=== PATIENT | male | born 1980 | race Caucasian/White ===

== ENCOUNTER 2016-11-11 13:07 | Emergency (ER) | payer MEDICAID ==
[~2016-11-11] VITALS: Ht 190.5 cm; Wt 102.1 kg
[~2016-11-11 13:07] MED LIST: TORADOL10 MG PO
--- OUTSIDE RECORDS SUMMARY | 2016-11-11 13:35 | External Medical Summary Rpt ---
Author Author , Organization [employer] Address Unknown Phone Unavailable Care Team Providers Care Manager Medical Affairs Name Role Phone [facility], Unavailable Unavailable [facility] FLACA HIRAM, Unavailable Unavailable FLACA HIRAM MACIE RHO, MAICE Unavailable Unavailable [facility] Un[facility] Unavailable [facility], [facility] Unavailable Unavailable [facility]ING [facility], [facility] SOKAN BAB, SOKAN BAB Unavailable Unavailable [facility] Purpose Continuity of Care Document - 07-22-2015 through 2016 Problems Code Diagnosis DOS Provider Status [id number] SPRAIN MED 03-11-2016 [facility] LIGAMENT LT INC KNEE INITIAL [id number] OTHER 02-03-2016 [place] [facility] LEFT KNEE IMAGING ASS P40502 PAIN IN 02-03-2016 [place] [facility] IM[facility]ING ASS M1712 UNILATERAL 01-26-2016 [facility] OSTEOARTHRI INC TIS LEFT KNEE Z720 TOBACCO USE 01-26-2016 [facility] INC J020 STREPTOCOCC 07-22-2015 [facility] PHARYNGITIS PHYS R05 COUGH 07-22-2015 [facility] M19.90 UNSPECIFIED OSTEOARTHRI TIS, UNSPECIFIED SITE S63.91XA SPRAIN OF UNSP PART OF RIGHT WRIST AND HAND, INIT ENCNTR Procedures Procedure DOS Code Location Performer Comment THERAPEUT 21881 [facility] [place] 1/> [facility] EACH 15 MIN EXERCISES THERAPEUT 32855 [facility] [place]/> [facility] EACH 15 MIN EXERCISES THERAPEUT 57809 [facility] [place]/> [facility] INC EACH 15 MIN EXERCISES APPL 38069 [facility] [place] MODALITY 6 [facility] /> AREAS INC INC IONTOPHOR ESIS EA 15 MIN THERAPEUT 03366 [facility] [place]/> [facility] INC EACH 15 MIN EXERCISES APPL 13656 [facility] [place] MODALITY 6 [facility] 1/> AREAS INC INC IONTOPHOR ESIS EA 15 MIN THERAPEUT 04034 [facility] [place]/> [facility] INC EACH 15 MIN EXERCISES APPL 79744 [facility] [place] MODALITY 6 [facility] 1/> AREAS INC INC IONTOPHOR ESIS EA 15 MIN APPL 33159 [facility] [place] MODALITY 6 [facility] 1/> AREAS INC INC ULTRASOUN D EA 15 MIN THERAPEUT 33934 [facility] [place] P[place] 1/> 6 [facility] INC EACH 15 MIN EXERCISES APPL 27643 [facility] [place] MODALITY 6 [facility] 1/> AREAS INC INC IONTOPHOR ESIS EA 15 MIN PHYSICAL 92822 [facility] [place] THERAPY 6 [facility] EVALUATIO INC INC N MRI ANY 40903 [facility] JT LOWER 6 [facility] EXTREM INC INC W/O CONTRAST MATRL RADIOLOGI 50977 [place] C 6 MEDICAL HIRAM EXAMINATI IMAGING ON KNEE 3 ASS VIEWS RADIOLOGI 22845 [place] MACIE C EXAM 6 RADIOLOGY RHO CHEST 2 VIEWS FRONTAL&L ATERAL ECG 09501 [facility] BAB ROUTINE 6 [place] ECG EMERGENCY W/LEAST PHYS 12 LDS I&R ONLY Encounters Encounter Start End Date Code Location Performer Type Date [facility]AL - 6 6 [facility] - 6 6 [facility] - 6 6 [facility] EMERGENCY 84624 [facility] BAB DEPT 6 6 [place] VISIT EMERGENCY HIGH PHYS SEVERITY& THREAT FUNCJ
--- OUTSIDE RECORDS SUMMARY | 2016-11-11 13:35 | External Medical Summary Rpt ---
Author Author , Organization [employer] Address Unknown Phone Unavailable Care Team Providers Care Warp Dyeing Tender Name Role Phone [facility], Unavailable Unavailable [facility] FLACA HIRAM, Unavailable Unavailable FLACA HIRAM MACIE RHO, MACIE Unavailable Unavailable [facility] Unavailable Unavailable INC, [facility] Unavailable Unavailable IM[facility]ING [facility], [facility] SOKAN BAB, SOKAN BAB Unavailable Unavailable [facility] Unavailable Unavailable [facility] Purpose Continuity of Care Document - 07-22-2015 through 2016 Problems Code Diagnosis DOS Provider Status [id number] SPRAIN MED 03-11-2016 [facility] LIGAMENT LT INC KNEE INITIAL N00551 OTHER 02-03-2016 [place] [facility] LEFT KNEE IMAGING ASS [id number] PAIN IN 02-03-2016 [place] [facility] IM[facility]ING ASS M1712 UNILATERAL 01-26-2016 [facility] OSTEOARTHRI INC TIS LEFT KNEE Z720 TOBACCO USE 01-26-2016 [facility] INC J020 STREPTOCOCC 07-22-2015 [facility] PHARYNGITIS PHYS R05 COUGH 07-22-2015 [facility] M19.90 UNSPECIFIED OSTEOARTHRI TIS, UNSPECIFIED SITE S63.91XA SPRAIN OF UNSP PART OF RIGHT WRIST AND HAND, INIT ENCNTR Procedures Procedure DOS Code Location Performer Comment THERAPEUT 33119 [facility] [place]/> [facility] INC EACH 15 MIN EXERCISES THERAPEUT 91748 [facility] [place]/> [facility] INC EACH 15 MIN EXERCISES THERAPEUT 96199 [facility] [place]/> 6 [facility] INC EACH 15 MIN EXERCISES APPL 12427 [facility] [place] MODALITY 6 [facility] /> AREAS INC INC IONTOPHOR ESIS EA 15 MIN THERAPEUT 25488 [facility] [place] 1/> 6 [facility] INC EACH 15 MIN EXERCISES APPL 27041 [facility] [place] MODALITY 6 [facility] 1/> AREAS INC INC IONTOPHOR ESIS EA 15 MIN THERAPEUT 64751 [facility] [place] 1/> 6 [facility] INC INC EACH 15 MIN EXERCISES APPL 98931 [facility] [place] MODALITY 6 [facility] 1/> AREAS INC INC IONTOPHOR ESIS EA 15 MIN APPL 17524 [facility] [place] MODALITY 6 [facility] 1/> AREAS INC INC ULTRASOUN D EA 15 MIN THERAPEUT 28727 [facility] [place] 1/> 6 [facility] INC EACH 15 MIN EXERCISES APPL 50189 [facility] [place] MODALITY 6 [facility] 1/> AREAS INC INC IONTOPHOR ESIS EA 15 MIN PHYSICAL 41781 [facility] [place] THERAPY 6 [facility] [place]ALUATIO INC [place] 31164 [facility] [place] JT LOWER 6 [facility] EXTREM INC INC W/O CONTRAST MATRL RADIOLOGI 60239 [place] C 6 MEDICAL HIRAM EXAMINATI IMAGING ON KNEE 3 ASS VIEWS RADIOLOGI 82208 [place] MACIE C EXAM 6 RADIOLOGY RHO CHEST 2 VIEWS FRONTAL&L ATERAL ECG 70244 [facility] BAB ROUTINE 6 [place] ECG EMERGENCY W/LEAST PHYS 12 LDS I&R ONLY Encounters Encounter Start End Date Code Location Performer Type Date [facility] - 6 6 [facility] 6 [facility] - 6 6 [facility] - 6 6 [facility] EMERGENCY 09294 [facility] BAB DEPT 6 6 [place] VISIT EMERGENCY HIGH PHYS SEVERITY& THREAT FUNCJ
--- OUTSIDE RECORDS SUMMARY | 2016-11-11 13:36 | External Medical Summary Rpt ---
Author Author , Organization [employer] Address Unknown Phone Unavailable Care Team Providers Care Plant Electrician Name Role Phone [facility], Unavailable Unavailable [facility] FLACA HIRAM, Unavailable Unavailable FLACA HIRAM MACIE RHO, MACIE Unavailable Unavailable [facility] Unavailable Unavailable INC, [facility] Unavailable Unavailable IM[facility]ING [facility], [facility] SOKAN BAB, SOKAN BAB Unavailable Unavailable [facility] Un[facility] Unavailable [facility] Purpose Continuity of Care Document - 07-22-2015 through 2016 Problems Code Diagnosis DOS Provider Status [id number] SPRAIN MED 03-11-2016 [facility] LIGAMENT LT INC KNEE INITIAL S71838 OTHER 02-03-2016 [place] [facility] LEFT KNEE IMAGING ASS [id number] PAIN IN 02-03-2016 [place] [facility] IM[facility]ING ASS M1712 UNILATERAL 01-26-2016 [facility] OSTEOARTHRI INC TIS LEFT KNEE Z720 TOBACCO USE 01-26-2016 [facility] INC J020 STREPTOCOCC 07-22-2015 [facility] PHARYNGITIS PHYS R05 COUGH 07-22-2015 [facility] Procedures Procedure DOS Code Location Performer Comment THERAPEUT 99572 [facility] [place] P[place] 1/> [facility] EACH 15 MIN EXERCISES THERAPEUT 16183 [facility] [place]/> [facility] INC EACH 15 MIN EXERCISES APPL 74770 [facility] MODALITY 6 [facility] 1/> AREAS INC INC IONTOPHOR ESIS EA 15 MIN THERAPEUT 12438 [facility] [place] P[place] 1/> 6 [facility] INC EACH 15 MIN EXERCISES APPL 83624 [facility] MODALITY 6 [facility] 1/> AREAS INC INC IONTOPHOR ESIS EA 15 MIN THERAPEUT 55446 [facility] [place] 1/> 6 [facility] INC EACH 15 MIN EXERCISES APPL 29947 [facility] MODALITY 6 [facility] 1/> AREAS INC INC ULTRASOUN D EA 15 MIN APPL 86662 [facility] [place] MODALITY 6 [facility] 1/> AREAS INC INC IONTOPHOR ESIS EA 15 MIN THERAPEUT 83610 [facility] [place] P[place] 1/> 6 [facility] AREAS INC INC EACH 15 MIN EXERCISES APPL 40089 [facility] [place] MODALITY 6 [facility] 1/> AREAS INC INC IONTOPHOR ESIS EA 15 MIN THERAPEUT 27098 [facility] [place] PX 1/> 6 [facility] AREAS INC INC EACH 15 MIN EXERCISES PHYSICAL 34279 [facility] [place] THERAPY 6 [facility] EVALUATIO INC INC N MRI ANY 15175 [place] JT LOWER 6 MEDICAL HIRAM EXTREM IMAGING W/O ASS CONTRAST MATRL RADIOLOGI 94977 [place] C 6 MEDICAL HIRAM EXAMINATI IMAGING ON KNEE 3 ASS VIEWS ECG 14740 [facility] BAB ROUTINE 6 [place] ECG EMERGENCY W/LEAST PHYS 12 LDS I&R ONLY RADIOLOGI 39772 [place] MACIE C EXAM 6 RADIOLOGY RHO CHEST 2 VIEWS FRONTAL&L ATERAL Encounters Encounter Start End Date Code Location Performer Type Date [facility] BIMAL - 6 6 [facility] BIMAL [facility] 6 6 [facility] BIMAL - 6 6 [facility] 6 6 [facility] EMERGENCY 36321 [facility] BAB DEPT 6 6 [place] VISIT EMERGENCY HIGH PHYS SEVERITY& THREAT FUNCJ
--- OUTSIDE RECORDS SUMMARY | 2016-11-11 13:36 | External Medical Summary Rpt ---
Author Author , Organization [employer] Address Unknown Phone Unavailable Care Team Providers Care Lone Lead Lineman Name Role Phone [facility], Unavailable Unavailable [facility] FLACA HIRAM, Unavailable Unavailable FLACA HIRAM MACIE RHO, MACIE Unavailable Unavailable [facility] Unavailable Unavailable INC, [facility] Unavailable Unavailable IMAGING ASS, [facility] SOKAN BAB, SOKAN BAB Unavailable Unavailable [facility] Unavailable Unavailable [facility], [facility] Purpose Continuity of Care Document - 07-22-2015 through 2016 Problems Code Diagnosis DOS Provider Status [id number] SPRAIN MED 03-11-2016 [facility] LIGAMENT LT INC KNEE INITIAL [id number] OTHER 02-03-2016 [place] [facility] LEFT KNEE IMAGING ASS W07185 PAIN IN 02-03-2016 [place] LEFT [facility] MEDICAL IMAGING ASS M1712 UNILATERAL 01-26-2016 [facility] OSTEOARTHRI INC TIS LEFT KNEE Z720 TOBACCO USE 01-26-2016 [facility] INC J020 STREPTOCOCC 07-22-2015 [facility] PHARYNGITIS PHYS R05 COUGH 07-22-2015 [facility] Procedures Procedure DOS Code Location Performer Comment THERAPEUT 43725 [facility] [place] 1/> [facility] EACH 15 MIN EXERCISES THERAPEUT 73032 [facility] [place]/> [facility] INC EACH 15 MIN EXERCISES APPL 33929 [facility] MODALITY 6 [facility] 1/> AREAS INC INC IONTOPHOR ESIS EA 15 MIN THERAPEUT 10621 [facility] [place] PX 1/> [facility] INC EACH 15 MIN EXERCISES APPL 15469 [facility] MODALITY 6 [facility] 1/> AREAS INC INC IONTOPHOR ESIS EA 15 MIN THERAPEUT 33553 [facility] [place] P[place] 1/> 6 [facility] INC EACH 15 MIN EXERCISES APPL 85636 [facility] MODALITY 6 [facility] 1/> AREAS INC INC ULTRASOUN D EA 15 MIN APPL 06299 [facility] [place] MODALITY 6 [facility] 1/> AREAS INC INC IONTOPHOR ESIS EA 15 MIN THERAPEUT 19313 [facility] [place] PX 1/> 6 [facility] AREAS INC INC EACH 15 MIN EXERCISES APPL 33370 [facility] [place] MODALITY 6 [facility] 1/> AREAS INC INC IONTOPHOR ESIS EA 15 MIN THERAPEUT 93330 [facility] [place] IC PX 1/> 6 [facility] AREAS INC INC EACH 15 MIN EXERCISES PHYSICAL 55406 [facility] [place] THERAPY 6 [facility] EVALUATIO INC INC N MRI ANY 23792 [place] JT LOWER 6 MEDICAL HIRAM EXTREM IMAGING W/O ASS CONTRAST MATRL RADIOLOGI 57486 [place] C 6 MEDICAL HIRAM EXAMINATI IMAGING ON KNEE 3 ASS VIEWS ECG 63421 [facility] BAB ROUTINE 6 [place] ECG EMERGENCY W/LEAST PHYS 12 LDS I&R ONLY RADIOLOGI 44439 [place] MACIE C EXAM 6 RADIOLOGY RHO CHEST 2 VIEWS FRONTAL&L ATERAL Encounters Encounter Start End Date Code Location Performer Type Date [facility] BIMAL - 6 6 [facility] OUTPATIEN [facility] BIMAL [facility] 6 6 [facility] BIMAL [facility] 6 6 [facility] B[facility] - 6 6 [facility] EMERGENCY 95278 [facility] BAB DEPT 6 6 [place] VISIT EMERGENCY HIGH PHYS SEVERITY& THREAT FUNCJ
--- OUTSIDE RECORDS SUMMARY | 2016-11-11 13:36 | External Medical Summary Rpt ---
Author Author , Organization [employer] Address Unknown Phone Unavailable Care Team Providers Care Counselor Education Professor Name Role Phone [facility], Unavailable Unavailable [facility] FLACA HIRAM, Unavailable Unavailable FL[place] HIRAM MACIE RHO, MACIE Unavailable Unavailable [facility] Un[facility] Unavailable [facility], [facility] Unavailable Unavailable IMAGING ASS, [facility] SOKAN BAB, SOKAN BAB Unavailable Unavailable [facility] Unavailable Unavailable [facility] Purpose Continuity of Care Document - 07-22-2015 through 2016 Problems Code Diagnosis DOS Provider Status [id number] SPRAIN MED 03-11-2016 [facility] LIGAMENT LT INC KNEE INITIAL V76388 OTHER 02-03-2016 [place] [facility] LEFT KNEE IMAGING ASS Q75043 PAIN IN 02-03-2016 [place] [facility] IM[facility]ING ASS M1712 UNILATERAL 01-26-2016 [facility] OSTEOARTHRI INC TIS LEFT KNEE Z720 TOBACCO USE 01-26-2016 [facility] INC J020 STREPTOCOCC 07-22-2015 [facility] PHARYNGITIS PHYS R05 COUGH 07-22-2015 [facility] Procedures Procedure DOS Code Location Performer Comment THERAPEUT 30835 [facility] [place] P[place] 1/> [facility] INC EACH 15 MIN EXERCISES THERAPEUT 21706 [facility] [place]/> [facility] INC EACH 15 MIN EXERCISES APPL 09316 [facility] MODALITY 6 [facility] 1/> AREAS INC INC IONTOPHOR ESIS EA 15 MIN THERAPEUT 26645 [facility] [place] P[place] 1/> 6 [facility] INC INC EACH 15 MIN EXERCISES APPL 92411 [facility] MODALITY 6 [facility] 1/> AREAS INC INC IONTOPHOR ESIS EA 15 MIN THERAPEUT 90951 [facility] [place] P[place] 1/> 6 [facility] INC EACH 15 MIN EXERCISES APPL 38285 [facility] MODALITY 6 [facility] 1/> AREAS INC INC ULTRASOUN D EA 15 MIN APPL 73271 [facility] MODALITY 6 [facility] 1/> AREAS INC INC IONTOPHOR ESIS EA 15 MIN THERAPEUT 75038 [facility] [place] IC PX 1/> 6 [facility] AREAS INC INC EACH 15 MIN EXERCISES APPL 71578 [facility] [place] MODALITY 6 [facility] 1/> AREAS INC INC IONTOPHOR ESIS EA 15 MIN THERAPEUT 54564 [facility] [place] IC PX 1/> 6 [facility] AREAS INC INC EACH 15 MIN EXERCISES PHYSICAL 56992 [facility] THERAPY 6 [facility] EVALUATIO INC [place] ANY 28409 [place] JT LOWER 6 MEDICAL HIRAM EXTREM IMAGING W/O ASS CONTRAST MATRL RADIOLOGI 77420 [place] C 6 MEDICAL HIRAM EXAMINATI IMAGING ON KNEE 3 ASS VIEWS ECG 85922 [facility] BAB ROUTINE 6 [place] ECG EMERGENCY W/LEAST PHYS 12 LDS I&R ONLY RADIOLOGI 32225 [place] MACIE C EXAM 6 RADIOLOGY RHO CHEST 2 VIEWS FRONTAL&L ATERAL Encounters Encounter Start End Date Code Location Performer Type Date [facility] BIMAL - 6 6 [facility] OUTPATIEN [facility] BIMAL [facility] 6 6 [facility]PAT[facility] BIMAL - 6 6 [facility] 6 6 [facility] EMERGENCY 44709 [facility] BAB DEPT 6 6 [place] VISIT EMERGENCY HIGH PHYS SEVERITY& THREAT FUNCJ
--- OUTSIDE RECORDS SUMMARY | 2016-11-11 13:36 | External Medical Summary Rpt ---
Author Author , Organization [employer] Address Unknown Phone Unavailable Care Team Providers Care Composite Worker Name Role Phone [facility], Unavailable Unavailable [facility] FLACA HIRAM, Unavailable Unavailable FLACA HIRAM MACIE RHO, MACIE Unavailable Unavailable [facility] Un[facility], [facility] Unavailable Unavailable IMAGING ASS, [facility] SOKAN BAB, SOKAN BAB Unavailable Unavailable [facility] Unavailable Unavailable [facility] Purpose Continuity of Care Document - 07-22-2015 through 2016 Problems Code Diagnosis DOS Provider Status [id number] SPRAIN MED 03-11-2016 [facility] LIGAMENT LT INC KNEE INITIAL [id number] OTHER 02-03-2016 [place] [facility] LEFT KNEE IMAGING ASS [id number] PAIN IN 02-03-2016 [place] LEFT KNEE MEDICAL IMAGING ASS M1712 UNILATERAL 01-26-2016 [facility] OSTEOARTHRI INC TIS LEFT KNEE Z720 TOBACCO USE 01-26-2016 [facility] INC J020 STREPTOCOCC 07-22-2015 [facility]ERG[facility] PHARYNGITIS PHYS R05 COUGH 07-22-2015 [facility] Procedures Procedure DOS Code Location Performer Comment THERAPEUT 47581 [facility] [place] P[place] 1/> [facility] EACH 15 MIN EXERCISES THERAPEUT 24379 [facility] [place] P[place] 1/> [facility] INC EACH 15 MIN EXERCISES APPL 76646 [facility] MODALITY 6 [facility] 1/> AREAS INC INC IONTOPHOR ESIS EA 15 MIN THERAPEUT 70966 [facility] [place] P[place] 1/> 6 [facility] INC EACH 15 MIN EXERCISES APPL 67379 [facility] MODALITY 6 [facility] 1/> AREAS INC INC IONTOPHOR ESIS EA 15 MIN THERAPEUT 97696 [facility] [place] P[place] 1/> 6 [facility] INC EACH 15 MIN EXERCISES APPL 95804 [facility] MODALITY 6 [facility] 1/> AREAS INC INC ULTRASOUN D EA 15 MIN APPL 28800 [facility] MODALITY 6 [facility] 1/> AREAS INC INC IONTOPHOR ESIS EA 15 MIN THERAPEUT 57626 [facility] [place] IC PX 1/> 6 [facility] AREAS INC INC EACH 15 MIN EXERCISES APPL 40059 [facility] [place] MODALITY 6 [facility] 1/> AREAS INC INC IONTOPHOR ESIS EA 15 MIN THERAPEUT 08470 [facility] [place] PX 1/> 6 [facility] AREAS INC INC EACH 15 MIN EXERCISES PHYSICAL 37344 [facility] THERAPY 6 [facility] EVALUATIO INC INC [place] ANY 63401 [place] JT LOWER 6 MEDICAL HIRAM EXTREM IMAGING W/O ASS CONTRAST MATRL RADIOLOGI 95556 [place] C 6 MEDICAL HIRAM EXAMINATI IMAGING ON KNEE 3 ASS VIEWS ECG 63492 [facility] BAB ROUTINE 6 [place] ECG EMERGENCY W/LEAST PHYS 12 LDS I&R ONLY RADIOLOGI 68791 [facility] MACIE C EXAM 6 RADIOLOGY RHO CHEST 2 VIEWS FRONTAL&L ATERAL Encounters Encounter Start End Date Code Location Performer Type Date [facility] BIMAL - 6 6 [facility] OUT[facility] BIMAL - 6 6 [facility]IM[facility] - 6 6 [facility] - 6 6 [facility] EMERGENCY 79232 [facility] BAB DEPT 6 6 [place] VISIT EMERGENCY HIGH PHYS SEVERITY& THREAT FUNCJ
--- OUTSIDE RECORDS SUMMARY | 2016-11-11 13:36 | External Medical Summary Rpt ---
Author Author BET[employer] Barnard, BETO Barnard Organization [employer] Address Unknown Phone Unavailable
--- OUTSIDE RECORDS SUMMARY | 2016-11-11 13:36 | External Medical Summary Rpt ---
Demographics Preferred Language Kinyarwanda Marital Status Unknown Anglican Affiliation Unknown Race Unknown Ethnic Group Unknown Author Author , Organization [employer] Address Unknown Phone Unavailable Purpose Continuity of Care Document - through 2016 Immunization No patient found.
--- OUTSIDE RECORDS SUMMARY | 2016-11-11 13:36 | External Medical Summary Rpt ---
Author Author , Organization [employer] Address Unknown Phone Unavailable Care Team Providers Care Sewing Inspector Name Role Phone [facility], Unavailable Unavailable [facility] HIRAM, Unavailable Unavailable [facility] MACIE RHO, MACIE Unavailable Unavailable [facility], [facility] Un[facility] Unavailable [facility], [facility] SOKAN BAB, SOKAN BAB Unavailable Unavailable [facility] Purpose Continuity of Care Document - 07-22-2015 through 2016 Problems Code Diagnosis DOS Provider Status [id number] SPR[facility] MED [facility]-11-[facility] KNEE INITIAL [id number] OTHER 02-03-2016 [facility] [facility] LEFT [facility]EE IM[facility]ING [facility] L50021 PAIN IN 02-03-2016 [place] [facility] M1712 UNILATERAL 01-26-2016 [facility] OSTE[facility] TIS LEFT KNEE Z720 TOBACCO USE 01-26-2016 [facility] J020 STREPTOCOCC 07-22-2015 [facility] PHARYNGITIS PHYS R05 COUGH 07-22-2015 [facility] M19.90 UNSPECIFIED OSTEOARTHRI TIS, UNSPECIFIED SITE S63.91XA SPRAIN OF UNSP PART OF RIGHT WRIST AND HAND, INIT ENCNTR Procedures Procedure DOS Code Location Performer Comment THERAPEUT 18115 [facility] [place] PX 1/> [facility] EACH 15 MIN EXERCISES THERAPEUT 76267 [facility] IC PX 1/> [facility] EACH 15 MIN EXERCISES APPL 48698 [facility] [place] MODALITY 6 [facility] 1/> [facility] INC INC IONTOPHOR ESIS EA 15 MIN THERAPEUT 41834 [facility] [place] IC PX 1/> 6 [facility] EACH 15 MIN EXERCISES APPL 31851 [facility] [place] MODALITY 6 [facility] 1/> [facility] INC IONTOPHOR ESIS EA 15 MIN THERAPEUT 55246 [facility] [place] PX 1/> 6 [facility] EACH 15 MIN EXERCISES APPL 63344 [facility] [place] MODALITY 6 [facility]/> [facility] INC ULTRASOUN D EA 15 MIN APPL 24823 [facility] [place] MODALITY 6 [facility] 1/> [facility] INC IONTOPHOR ESIS EA 15 MIN THERAPEUT 76636 [facility] [place] PX 1/> 6 [facility] EACH 15 MIN EXERCISES APPL 19162 [facility] [place] MODALITY 6 [facility] 1/> ARE[facility] INC INC IONTOPHOR ESIS EA 15 MIN THERAPEUT 93635 [facility] [place] IC PX 1/> 6 [facility] EACH 15 MIN EXERCISES PHYSICAL 74073 [facility] [place] THERAPY 6 [facility] INC N MRI ANY 10254 [place] [facility] JT LOWER 6 [facility] EXTREM IMAGING W/O ASS CONTRAST [facility]RL RADIOLOGI 69985 [place] C 6 [facility]ICAL [facility] EXAMINATI IMAGING ON KNEE 3 ASS VIEWS ECG 60787 [facility] ROUTINE 6 [place] ECG EMERGENCY W/LEAST PHYS 12 LDS I&R ONLY RADIOLOGI 26382 [facility] [place] MACIE C EXAM 6 RADIOLOGY RHO CHEST 2 VIEWS FRONTAL&L ATERAL Encounters Encounter Start End Date Code Location Performer Type Date [facility] - 6 6 [facility] OUTPATIEN [facility] B[facility] - 6 6 [facility] - 6 6 [facility] EMERGENCY 83531 [facility] DEPT 6 6 [place] VISIT EMERGENCY HIGH PHYS SEVERITY& THREAT FUNCJ
--- OUTSIDE RECORDS SUMMARY | 2016-11-11 13:36 | External Medical Summary Rpt ---
Demographics Preferred Language Mohawk Marital Status Unknown Alevism Affiliation Unknown Race Unknown Ethnic Group Unknown Author Author , Organization [employer] Address Unknown Phone Unavailable Purpose Continuity of Care Document - through 2016 Immunization No patient found.
--- OUTSIDE RECORDS SUMMARY | 2016-11-11 13:36 | External Medical Summary Rpt ---
Author Author , Organization [employer] Address Unknown Phone Unavailable Care Team Providers Care It Quality Analyst Name Role Phone [facility], Unavailable Unavailable [facility] FLACA HIRAM, Unavailable Unavailable [facility] H[facility] MACIE RHO, MACIE Unavailable Unavailable [facility] Un[facility], [facility] Unavailable Unavailable [facility], [facility] SOKAN BAB, SOKAN BAB Unavailable Unavailable [facility] Purpose Continuity of Care Document - 07-22-2015 through 2016 Problems Code Diagnosis DOS Provider Status [id number] SPRAIN MED [facility]-11-[facility] KNEE INITIAL E04829 OTHER 02-03-2016 [facility] IM[facility]ING ASS T18212 PAIN IN 02-03-2016 [place] [facility] M1712 UNILATERAL 01-26-2016 [facility]STE[facility] TIS LEFT KNEE Z720 TOBACCO USE 01-26-2016 [facility] J020 STREPTOCOCC 07-22-2015 [facility] PHARYNGITIS PHYS R05 COUGH 07-22-2015 [facility] M19.90 UNSPECIFIED OSTEOARTHRI TIS, UNSPECIFIED SITE S63.91XA SPRAIN OF UNSP PART OF RIGHT WRIST AND HAND, INIT ENCNTR Procedures Procedure DOS Code Location Performer Comment THERAPEUT 99610 [facility] [place] IC PX 1/> [facility] EACH 15 MIN EXERCISES THERAPEUT 12659 [facility] IC PX 1/> 6 [facility] EACH 15 MIN EXERCISES APPL 32558 [facility] [place] MODALITY 6 [facility] 1/> [facility] INC INC IONTOPHOR ESIS EA 15 MIN THERAPEUT 54396 [facility] [place] IC PX 1/> 6 [facility] EACH 15 MIN EXERCISES APPL 57962 [facility] [place] MODALITY 6 [facility] 1/> AREAS INC INC IONTOPHOR ESIS EA 15 MIN THERAPEUT 24275 [facility] [place] IC PX 1/> 6 [facility] EACH 15 MIN EXERCISES APPL 42937 [facility] [place] MODALITY 6 [facility] 1/> ARE[facility] INC INC ULTRASOUN D EA 15 MIN APPL 29892 [facility] [place] MODALITY 6 [facility] 1/> AREAS INC INC IONTOPHOR ESIS EA 15 MIN THERAPEUT 57614 [facility] [place] IC PX 1/> 6 [facility] EACH 15 MIN EXERCISES APPL 19671 [facility] [place] MODALITY 6 [facility] 1/> AREAS INC INC IONTOPHOR ESIS EA 15 MIN THERAPEUT 74390 [facility] [place] IC PX 1/> 6 [facility] INC EACH 15 MIN EXERCISES PHYSICAL 29818 [facility] [place] THERAPY 6 [facility] [place] [address] [facility] JT LOWER 6 MEDICAL HIRAM EXTREM IMAGING W/O ASS CONTRAST [facility]RL RADIOLOGI 59573 [place] C 6 MEDICAL H[facility] EXAMINATI IMAGING ON KNEE 3 ASS VIEWS ECG 79779 [facility] ROUTINE 6 [place] ECG EMERGENCY W/LEAST PHYS 12 LDS I&R ONLY RADIOLOGI 31752 [facility] [place] MACIE C EXAM 6 RADIOLOGY RHO CHEST 2 VIEWS FRONTAL&L ATERAL Encounters Encounter Start End Date Code Location Performer Type Date [facility] BIMAL - 6 6 [facility] - 6 [facility] 50142 [facility] DEPT 6 6 [place] VISIT EMERGENCY HIGH PHYS SEVERITY& THREAT FUNCJ
--- OUTSIDE RECORDS SUMMARY | 2016-11-11 13:36 | External Medical Summary Rpt ---
Demographics Preferred Language Romanian Marital Status Unknown Quaker Affiliation Unknown Race Unknown Ethnic Group Unknown Author Author , Organization [employer] Address Unknown Phone Unavailable Purpose Continuity of Care Document - through 2016 Immunization No patient found.
--- OUTSIDE RECORDS SUMMARY | 2016-11-11 13:36 | External Medical Summary Rpt ---
Demographics Preferred Language Arabic Marital Status Unknown Yarsani Affiliation Unknown Race Unknown Ethnic Group Unknown Author Author , Organization [employer] Address Unknown Phone Unavailable Purpose Continuity of Care Document - through 2016 Immunization No patient found.
--- NOTE | 2016-11-11 14:14 | Urgent Treatment Center Report ---
History of Present Issue Date/Time Seen by Provider 11/11/16 1403 Visit Reason Pt arrived:Walked Presenting Problem:PT STATES INJURY TO RIGHT FIRST TWO FINGERS ON TUESDAY. STATES BEING SEEN IN ED AND HAD XRAYS DONE. STATES FINGERS ARE NOW THROBBING AND IS UNABLE TO MOVE FINGERS. STATES HEARING SOMETHING "POP" WHEN HE HIT HAND PT STATES TAKING IBUPROFEN AT 1230 Location if Accident:Home Onset of symptoms date/time:/ or onset unknown for:MEDICAL HX UNKNOWN Have you (or family members/close friends) recently traveled outside the [place]? N If Yes, where/when: Have you had exposure to infectious disease within the past month? TB? Other? Specify: Patient states that he was seen here in the ER on Tuesday after he had injuried himself when a shovel kicked back a water spicket and caused it to strike him in the right middle finger and tore the nail off the index finger. States that now his fingers have swollen and painful to move and he hear a "pop" when he tried to move them and he got worried so he came in to be checked Source patient, family ALLERGIES Coded Allergies: No Known Allergies (11/09/16) Home Medications Reported Medications No Known Home Medications History Medical History General CAD? No Angina: No AK: Yes Hypertension? No Hyperlipidemia? No CHF? No DVT? No PE? No COPD? No Asthma? No Anemia? No GERD? No Gastric ulcers? No GI Bleed? No Hernia? No Thyroid Problems? No Hypothyroidism? No CVA? No Seizures? No Diabetes? No Renal Insuffiency? No UTI? No Stones? No BPH? No GB Disease: No Nephritic Syndrome? No Asplenia? No Hepatitis? No Sickle Cell Disease? No Arthritis? No Migraines? No Cataracts? No Glaucoma? No MRSA? No HIV? No TB? No Anxiety? No Depression? No Cancer? No More? No Immunization HX DT/Tetanus 1-4 Years Ago Surgical Hx Previous Surgery?Y JANEY HERNIA Social History Smoking Hx Smoker: Current Every Day Smoker Tobacco: Yes Type Cigarettes Packs/day 1 1/2 - 2 Packs Alcohol Alcohol: No Review of Systems All Other Systems Reviewed and Negative Comment Pain and swelling in right index and middle finger after accidently hitting them on Tuesday Physical Exam Vital Signs Vital Signs Date Time Temp Pulse Resp B/P Pulse O2 O2 Flow FiO2 Ox Delivery Rate 05/04 1311 97.6 70 18 124/84 98 General Appearance normal appearance, WD/WN, no apparent distress Respiratory Status Yes: trachea midline, chest symmetrical. No: respiratory distress. 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 Medical Decision Making LABS/Meds/Orders Pt receiving controlled substance in ED? No Results/Orders Orders Procedure Date/time Status HAND-RT 3 VIEWS 11/11 1409 Active XRAY/CT/US XRAY/CT/US XRAY hand XR interpretation by reviewed by me Xray Results no fracture seen Departure Departure Time of Disposition 1447 Disposition DC Home or Self Care(routine) Clinical Impression Primary Impression: Hand pain Qualifiers: Laterality: right Qualified Code: M79.641 - Pain in right hand Condition STABLE Referrals Pedro Garcia MD: 3 Days-Call Office 2-3 days if no improvements or worsening of symptoms ESVIN MONTOYA, BLANKA PETERSON: 2 Days-Call Office 2-3 days if no improvement or any worsening of symptoms Patient Instructions How To Perform RICE (Rest, Ice, Compress, Elevate) Additional Instructions *RICE, Rest the extremity, Ice 15-20 minutes 3-4 times daily, Compress- wear the gualberto wrap, Elevate the extremity when at rest *Gualberto wrap is for support and help control swelling, use it except in the shower. Be sure that is not to tight but not to loose either *Elevate as discussed as much as possible to help reduce swelling and pain *Ibuprofen 600-800mg every 6-8 hours as needed for pain an inflammation. If need something more can take Tylenol in between doses of Ibuprofen to help Immediately follow up for new or worsening of symptoms, or no noticeable improvement over the nex 3-5 days Discharge Counseling Counseled pt/family regarding diagnosis, test results, medications/RX, home care, follow up needs Prescriptions Current Visit Scripts Ibuprofen (Ibuprofen 800MG) 800 MG PO QIDP PRN pain #30 TAB at 1450
[2016-11-11] MEDS ORDERED: IBUPROFEN800 MG PO (14:50)
[2016-11-11 14:57] VITALS: BP 124/84
--- NOTE | 2016-11-11 15:04 | RADIOLOGY REPORT PS360 ---
HAND-RT 3 VIEWS HISTORY: PAIN/INJURY ORDERING PHYSICIAN: DAMARIS CARUSO APRN PATIENT AGE: 36 years COMPARISON: None FINDINGS: No fracture or dislocation. No lytic or blastic change. There is normal mineralization. The joint spaces are well-preserved. No significant degenerative/arthritic changes. No erosive changes evident. Position is somewhat limited as the fingers were not able to be fanned due to pain IMPRESSION: No definite acute finding.
== END 2016-11-11 14:58 | disposition home or self-care (01) ==
LOC: UTC 13:07
DX: M79.641 Pain in right hand (principal); W22.8XXA Striking against or struck by other objects, initial encounter; Y92.009 Unspecified place in unspecified non-institutional (private) residence as the place of occurrence of the external cause